=== PATIENT | female | born 1995 | race Caucasian/White ===

== ENCOUNTER 2017-08-09 15:20 | Emergency (ER) | payer OTHER ==
[~2017-08-09] VITALS: Ht 149.9 cm; Wt 52.2 kg
[2017-08-09 15:21] VITALS: BP 115/68
[2017-08-09] MEDS ORDERED: NORCO 5-325 TA1 EACH PO (15:31)
[2017-08-09] MEDS ORDERED: PENICILLIN VK500 M1 PO (15:31)
== END 2017-08-09 15:47 | disposition home or self-care (01) ==
LOC: ER 15:20
DX: K05.10 Chronic gingivitis, plaque induced (principal); K08.89 Other specified disorders of teeth and supporting structures; F17.210 Nicotine dependence, cigarettes, uncomplicated